=== PATIENT | male | born 1950 | race Caucasian/White ===

== ENCOUNTER 2021-09-11 17:05 | Inpatient (IN) | payer MEDICARE, OTHER ==
[~2021-09-11] VITALS: Ht 175.3 cm; Wt 71.7 kg
--- NOTE | 2021-09-11 17:05 | NUR ---
bib ra 89 from care facility for low o2sat/cough/congestion. Patient is awake but confuse. Came with NGT on right nostril, with peripheral g18 on right hand. patient has stage 3 pressure ulcer at sacral area. Placed comfortably in bed. Vitals checked. oxygen inhalation at 2lpm via nasal cannula.
--- NOTE | 2021-09-11 17:15 | NUR ---
EKG DONE AT BEDSIDE
--- NOTE | 2021-09-11 17:17 | NUR ---
DR MCBRIDE ORDERED TO REMOVE OXYGEN AND OBSERVE FOR DESSATURATION. PATIENT IS 96%
--- NOTE | 2021-09-11 17:25 | NUR ---
FIRE DISPATCHER AT BEDSIDE
[2021-09-11 17:46] LABS: BASOPHILS % (AUTO) 0.4 % (0.0-2.0); EOSINOPHILS % (AUTO) 1.1 % (0.0-6.0); HEMATOCRIT 27 % (39-51); HEMOGLOBIN 8.9 g/dL (13.5-17.5); LYMPHOCYTES # (AUTO) 0.5 K/uL (0.8-4.8); LYMPHOCYTES % (AUTO) 9.6 % (20.0-44.0); MEAN CORPUSCULAR HGB CONC 33 g/dl (31.0-36.0); MEAN CORPUSCULAR VOLUME 78 fL (80-96); MONOCYTES # (AUTO) 0.3 K/uL (0.1-1.30); MONOCYTES % (AUTO) 6.1 % (2.0-12.0); NEUTROPHILS # (AUTO) 4.6 K/uL (1.8-8.9); NEUTROPHILS % (AUTO) 82.8 % (43.0-81.0); PLATELET COUNT (AUTO) 87 K/uL (150-450); RED BLOOD CELL COUNT(AUTO) 3.51 MIL/uL (4.5-6.0); WHITE BLOOD COUNT (AUTO) 5.6 K/uL (4.3-11.0)
--- NOTE | 2021-09-11 17:47 | NUR ---
NANDINI ARCE DAUGHTER [phone]
--- NOTE | 2021-09-11 18:07 | NUR ---
MOUTH CARE DONE AND SUCTION SECRETIONS DONE
[2021-09-11 18:18] LABS: ALANINE AMINOTRANSFERASE 42 U/L (12-78); ALBUMIN 2.7 g/dL (3.4-5.0); ALKALINE PHOSPHATASE 66 U/L (46-116); ASPARTATE AMINOTRANSFERASE 48 U/L (15-37); BILIRUBIN,DIRECT 0.2 mg/dL (0.0-0.2); BILIRUBIN,TOTAL 0.8 mg/dL (0.2-1.0); CALCIUM, SERUM 8.1 mg/dL (8.5-10.1); CARBON DIOXIDE 26 mmol/L (21-32); CHLORIDE 112 mmol/L (98-107); CREATININE 1.5 mg/dL (0.6-1.3); GLUCOSE 101 mg/dL (74-106); POTASSIUM 4.2 mmol/L (3.5-5.1); SODIUM SERUM 144 mmol/L (136-145); TOTAL PROTEIN, SERUM 6.3 g/dL (6.4-8.2); UREA NITROGEN, BLOOD 29 mg/dL (7-18)
--- NOTE | 2021-09-11 18:35 | NUR ---
MOVE SHEET SUBMITTED AND CALLED FOR TELE BED.
--- NOTE | 2021-09-11 18:51 | NUR ---
covid swab done and sent to lab
--- NOTE | 2021-09-11 18:51 | NUR ---
URINE SPECIMEN SENT TO LAB
[2021-09-11] MEDS ORDERED: IV NS 0.9% 1,000 ML BAG IV ONE (19:00)
[2021-09-11 19:54] LABS: BILIRUBIN,URINE NEGATIVE (NEGATIVE); COLOR,URINE YELLOW (YELLOW); LEUKOCYTE ESTERASE ,URINE NEGATIVE (NEGATIVE); NITRITE, URINE NEGATIVE (NEGATIVE); PH,URINE 6.5 (5.0-8.0); PROTEIN,URINE NEGATIVE (NEGATIVE); UGLUCOSE NEGATIVE (NEGATIVE); UROBILINOGEN,URINE 0.2 EU/dL (0.2)
[2021-09-11 20:06] LABS: BACTERIA,URINE Few /HPF (None Seen); SQUAMOUS EPITHELIAL CELL,UR Few /HPF (None Seen); WBC,URINE 0-2 /HPF (0-3)
[2021-09-11] MEDS ORDERED: MAG HYDROX/AL HYDROX/SIMETH 30 ML UDC PO PRN (20:30)
[2021-09-11] MEDS ORDERED: IV NS 0.9% 1,000 ML IV ONE (20:30)
[2021-09-11] MEDS ORDERED: ACETAMINOPHEN 325 MG TABLET PO PRN (20:30)
[2021-09-11] MEDS ORDERED: MAGNESIUM HYDROXIDE 30 ML UDC PO PRN (20:30)
[2021-09-11] MEDS ORDERED: Z GUARD REMEDY 4 OZ OINT TP PRN (20:30)
[2021-09-11] MEDS ORDERED: ZOLPIDEM TARTRATE 5 MG TABLET PO PRN (20:30)
[2021-09-11] MEDS ORDERED: ONDANSETRON HCL/PF 4 MG/2 ML VIAL IVP PRN (20:30)
[2021-09-11 21:13] LABS: BASOPHILS % (AUTO) 0.5 % (0.0-2.0); EOSINOPHILS % (AUTO) 0.9 % (0.0-6.0); HEMATOCRIT 26 % (39-51); HEMOGLOBIN 8.4 g/dL (13.5-17.5); LYMPHOCYTES # (AUTO) 0.5 K/uL (0.8-4.8); LYMPHOCYTES % (AUTO) 9.6 % (20.0-44.0); MEAN CORPUSCULAR HGB CONC 33 g/dl (31.0-36.0); MEAN CORPUSCULAR VOLUME 78 fL (80-96); MONOCYTES # (AUTO) 0.3 K/uL (0.1-1.30); MONOCYTES % (AUTO) 5.8 % (2.0-12.0); NEUTROPHILS # (AUTO) 4.1 K/uL (1.8-8.9); NEUTROPHILS % (AUTO) 83.2 % (43.0-81.0); PLATELET COUNT (AUTO) 74 K/uL (150-450); WHITE BLOOD COUNT (AUTO) 4.9 K/uL (4.3-11.0)
[2021-09-11 21:28] LABS: CALCIUM, SERUM 7.8 mg/dL (8.5-10.1); CARBON DIOXIDE 26 mmol/L (21-32); CHLORIDE 113 mmol/L (98-107); CREATININE 1.4 mg/dL (0.6-1.3); GLUCOSE 96 mg/dL (74-106); MAGNESIUM 2.2 mg/dL (1.8-2.4); POTASSIUM 4.1 mmol/L (3.5-5.1); SODIUM SERUM 147 mmol/L (136-145); UREA NITROGEN, BLOOD 29 mg/dL (7-18)
--- NOTE | 2021-09-11 21:32 | NUR ---
REPORT GIVEN TO BENITA CLIFTON.
[2021-09-11 22:00] VITALS: BP 154/93
--- NOTE | 2021-09-11 22:03 | NUR ---
TRANSFERRED PT TO 307-1 WITH EMT ATTACHED TO EQUIPMENT ASSOCIATE
--- NOTE | 2021-09-11 23:45 | NUR ---
PATIENT ARRIVED AT 2155, AWAKE, A/O X2. NO S/S OF DISTRESS NOTED. NO COMPLAIN OF PAIN. WITH NGT ON THE RIGHT NARE. CALL LIGHT WITHIN REACH AND INSTRUCTED. BED ALARM ON. BED IN LOWEST AND LOCKED POSITION. HOB ELEVATED.
[2021-09-12] VITALS: BP 106/65
[2021-09-12 04:00] VITALS: BP 124/73
[2021-09-12 04:58] VITALS: BP 124/73
--- NOTE | 2021-09-12 07:30 | NUR ---
BROADCAST NEWS PRODUCER NOTES PT IN BED, ASLEEP, NO SIGN OF PAIN OR DISTRESS, IV FLUIDS INFUSING WELL, NGT IN PLACE, CALL LIGHT WITHIN REACH, KEPT WARM AND COMFORTABLE.
[2021-09-12 08:36] VITALS: BP 127/84
--- NOTE | 2021-09-12 09:59 | NUR ---
WOUND CARE CONSULT: PT PRESENTS WITH RASH/REDNESS TO GROIN FOLDS AND PERINEUM WELL INCONTINENCE ASSOCIATED SKIN DAMAGE OVER PREVIOUS SACRAL SCARRING, PRESENT ON ADMISSION. RECOMMENDATIONS MADE FOR SKIN PROTECTION. DISCUSSED WITH NURSING STAFF. [facility] IN AGREEMENT WITH PLAN OF CARE. Addendum: 09/12/21 at 1000 by MCKENZIE GUILLAUME WNDNU Amended: Links added.
[2021-09-12] MEDS ORDERED: SUCR1TAB NG (10:34)
[2021-09-12] MEDS ORDERED: LEVO750P5 IV (10:34)
[2021-09-12] MEDS ORDERED: PANT40TA49 NG (10:34)
[2021-09-12] MEDS ORDERED: ACET325T53 NG (10:34)
[2021-09-12] MEDS ORDERED: TAMS-12 GT (10:34)
[2021-09-12] MEDS ORDERED: ENTA200T30 NG (10:34)
[2021-09-12] MEDS ORDERED: MAG355OR18 NG (10:34)
[2021-09-12] MEDS ORDERED: NA P133E RC (10:34)
[2021-09-12] MEDS ORDERED: CARB-36 NG (10:34)
[2021-09-12] MEDS ORDERED: ONDA4TAB5 NG (10:34)
[2021-09-12] MEDS ORDERED: BISA10SU11 RC (10:34)
[2021-09-12] MEDS ORDERED: MAGN400O6 NG (10:34)
[2021-09-12] MEDS ORDERED: CLOTRIMAZOLE 1% 15 GM TUBE TP SCH (11:00)
[2021-09-12 12:43] VITALS: BP 142/79
[2021-09-12 15:59] VITALS: BP 130/79
--- NOTE | 2021-09-12 16:00 | NUR ---
HOME AIDE NOTES PT IN BED, AWAKE, ABLE TO RESPOND TO SIMPLE QUESTIONS, NO SIGN OF PAIN, NOT IN DISTRESS, TOLERATES ROOM AIR, SEEN BY WOUND CARE NURSE, SKIN ASSESSMENT DONE, DISCHARGE ORDER GIVEN BY DR. GENAO, REPORT GIVEN TO [facility], SPOKE WITH MICAELA JOY ADMITTING NURSE, PT HAS NO BELONGINGS, PM CARE PROVIDED, PICKED UP BY AMBULANCE PERSONNEL, LEFT VIA GUERNEY IN STABLE CONDITIOM.
== END 2021-09-12 15:45 | DRG 205 ==
LOC: ER 17:21 → TELE 20:43
PROVIDERS: ADMIT Family Medicine; ATTEND Family Medicine
DX: T17.998A Other foreign object in respiratory tract, part unspecified causing other injury, initial encounter (principal); J96.21 Acute and chronic respiratory failure with hypoxia; N17.9 Acute kidney failure, unspecified; E44.0 Moderate protein-calorie malnutrition; I85.10 Secondary esophageal varices without bleeding; J98.11 Atelectasis; X58.XXXA Exposure to other specified factors, initial encounter; Y92.9 Unspecified place or not applicable; N18.9 Chronic kidney disease, unspecified; K74.60 Unspecified cirrhosis of liver; R13.10 Dysphagia, unspecified; F02.80 Dementia in other diseases classified elsewhere, unspecified severity, without behavioral disturbance, psychotic disturbance, mood disturbance, and anxiety; Z20.822 Contact with and (suspected) exposure to COVID-19; Z85.00 Personal history of malignant neoplasm of unspecified digestive organ; G20 Parkinson's disease; Z98.890 Other specified postprocedural states; D63.8 Anemia in other chronic diseases classified elsewhere; E83.51 Hypocalcemia; E88.09 Other disorders of plasma-protein metabolism, not elsewhere classified; Z93.1 Gastrostomy status; Z86.73 Personal history of transient ischemic attack (TIA), and cerebral infarction without residual deficits; D72.828 Other elevated white blood cell count
CPT/HCPCS: 36415; 71045-TC; 80048-TC; 80076-TC; 81001; 83605-TC; 83735-TC; 84100-TC; 84484-TC; 85025-TC; 85730-TC; 87040-TC; 87081-TC; 87086-TC; C9803; G0378; J7030